=== PATIENT | male | born 1945 | race Caucasian/White ===

== ENCOUNTER 2017-01-02 16:00 | Emergency (ER) | payer OTHER ==
[~2017-01-02] VITALS: Ht 177.8 cm; Wt 102.8 kg
[~2017-01-02 16:00] MED LIST: ASPI81TA28 PO; ATOR-24 PO; CALC500C3 PO; CALC500C50 PO; GLC/500 PO; LISI-725 PO; MULT-845 PO; OMEG10007 PO; PANT40TA PO
[2017-01-02 16:03] VITALS: TEMP 36.9; Ht 177.8 cm; Wt 102.8 kg
[2017-01-02] MEDS ORDERED: XYLOCAINE 1%/SOD BICARB 20 ML VIAL INFIL ONE (16:15)
[2017-01-02] MEDS ORDERED: DIPHTHERIA/TETANUS/PERTUSSIS 0.5 ML SYR/VIAL IM. ONE (16:15)
[2017-01-02] MEDS ORDERED: LPT40 PO (16:19)
[2017-01-02] MEDS ORDERED: SILD100T PO (16:19)
[2017-01-02] MEDS ORDERED: LSN20 PO (16:19)
[2017-01-02] MEDS ORDERED: GLC500 PO (16:19)
--- NOTE | 2017-01-02 16:29 | DIAGNOSTIC IMAGING REPORT ---
LEFT FIFTH FINGER 3 VIEWS CLINICAL HISTORY: Pain status post trauma COMPARISON: None. DISCUSSION: There is a fracture involving the tuft of the distal phalanx. A portion of the medial tuft appears missing suggesting a traumatic amputation. There is an overlying soft tissue injury. IMPRESSION: Fracture involving the tuft of the distal phalanx with an associated soft tissue injury. Electronically signed by: Ruslan Lucas M.D. 01/02/2017 4:27 PM Dictated Date/Time: 01/02/2017 4:26 PM
[2017-01-02] MEDS ORDERED: CEFAZOLIN SOD 1000MG/55 ML D5W IV STA (16:39)
--- NOTE | 2017-01-02 16:50 | EMERGENCY ROOM VISIT NOTE ---
ED Visit Note First contact with patient: 16:08 Chief Complaint: Left Fifth Finger Laceration History of Present Illness: This 71-year-old male patient presents to the Emergency Department for evaluation of their finger laceration. Patient sustained the laceration while trying to adjust mower deck with a crowbar, states he smashed his finger between the crowbar and the metal blade. They report a moderate amount of bleeding initially. They deny any numbness or tingling into the distal extremity. They report no decreased range of motion of the affected digit. They have tried no medications for the pain. Patient rates current discomfort as a 1/10. Patient denies any other injuries. Patient states that he spoke with his PCP who directed him to an urgent care, however the urgent care did not feel comfortable addressing his wound and referred him to the ED. Patient's states last tetanus was 10 years ago. Medications: Reviewed in chart Allergies: Reviewed in chart PMH: Hypertension and hyperlipidemia SHx: Lives at home. He is a former smoker, denies any current tobacco use, alcohol use, recreational drug use. ROS: All pertinent positive and negative review of systems are appropriately documented in the History of Present Illness. Physical Exam: VITAL SIGNS - Vital signs and nursing notes were reviewed. GENERAL -71-year-old male who is well appearing and in no acute distress. Communicates well with provider and answers questions appropriately. SKIN - There is a 4 cm long laceration noted medial and palmar aspect of the distal fifth finger. The edges gape apart with traction. No foreign bodies appreciated. The laceration extends into the nail bed, with the nail root partially displaced. Upon further examination there are no other deep structures including vessel, tendon, or bony structures appreciated, but there is loss of subcutaneous tissue along the medial edge of the distal finger, with external skin flap intact. There is mild active bleeding noted. MUSCULOSKELETAL - Laceration as described above. + 5/5 strength appreciated of the affected digit. Full range of motion of the affected digit. NEUROLOGIC - No sensory defects of the left hand were appreciated utilizing light touch for evaluation. VASCULAR - Capillary refill was brisk. ED Course: Patient was seen and evaluated by myself. Potential diagnoses includes laceration, nail bed laceration, and open fracture. X-ray of the left fifth finger confirms a tuft fracture of the distal phalanx. IV was placed and Ancef 1 g given. Patient's tetanus was updated today. Costs and benefits of performing primary wound closure versus no repair were discussed with the patient who verbalizes understanding. Verbal consent was obtained prior to performing the procedure. 3 cc of 1% buffered lidocaine was used to perform a digital block of the left fifth digit. The wound was cleansed and prepped in the typical sterile fashion utilizing normal saline and Betadine. The wound was sterilely draped. Once proper anesthetization was established, a finger tourniquet was applied and the wound was further examined and was as is described above. The wound was copiously irrigated with normal saline and Betadine. The wound was closed using a single 5-0 Vicryl suture of the nailbed with good closure. The nail base was replaced under the cuticle with good position. The remaining laceration was then closed with simple, 5-0 nylon sutures with the wound edges being well approximated. The finger tourniquet was removed, with brisk return of capillary refill to the finger, hemostasis was achieved. Patient tolerated the procedure well. No complications were met. The wound was cleansed and dressed with a Bacitracin dressing. A metal splint was applied to the finger for comfort. Patient educated on worrisome symptoms for return visit to the Emergency Department. He was encouraged to follow closely with orthopedic/hand surgeon for follow-up. Patient discharged to home in good condition. Medication Reconciliation: I attest that I have personally reviewed the patient' s current medication list. Blood pressure screening: The patient was found to have an elevated blood pressure and was referred to their primary doctor for recheck and further treatment. The patient was discussed with Dr. Gatica, who agreed with my assessment and plan. Problem List Medical Problems: (1) Hypertension Status: Chronic Current/Historical Medications Scheduled Aspirin (Aspirin Ec), 81 MG PO DAILY Atorvastatin (Atorvastatin Calcium), 40 MG PO DAILY Calcium Carbonate (Antacid) (Tums), 1-2 TABS PO QAM Cephalexin Monohydrate (Keflex), 500 MG PO QID Fish Oil ([place]-3), 4 CAP PO BID Lisinopril (Lisinopril), 20 MG PO DAILY Metformin HCl (Metformin HCl), 500 MG PO BIDM Multiple Vitamins W/ Minerals (Centrum Silver Adult 50+), 1 TAB PO DAILY Pantoprazole (Protonix), 40 MG PO DAILY Sildenafil Citrate (Viagra), 100 MG PO PRN Allergies Coded Allergies: Atenolol (Verified Adverse Reaction, Unknown, DECREASED HR, 01/02/17) INFO FROM [facility] [place] Sulfa Antibiotics (Verified Adverse Reaction, Unknown, FEVER, 12/06/14) Vital Signs Date Time Temp Pulse Resp B/P (MAP) Pulse Ox O2 Delivery O2 Flow Rate FiO2 01/02/17 17:38 79 18 139/87 94 Room Air 01/02/17 16:03 36.9 102 17 128/82 94 Room Air Medications Administered Medications (Trade) Dose Ordered Sig/Camacho Route Start Time Stop Time Status Last Admin Dose Admin Lidocaine HCl (Buffered Lidocaine 1% Inj) 20 ml ONE ONCE INFIL 01/02/17 16:15 01/02/17 16:16 DC 01/02/17 16:15 20 ML Diphtheria/ Pertussis/Tetanus Vacc (Adacel Inj) 0.5 ml ONCE ONCE IM. 01/02/17 16:15 01/02/17 16:16 DC 01/02/17 16:25 0.5 ML Cefazolin Sodium (Ancef 1000mg/55 ml D5W) 1,000 mg NOW STAT IV 01/02/17 16:39 01/02/17 16:41 DC 01/02/17 17:11 1,000 MG Cephalexin Monohydrate (Keflex 500MG Home Pack) 1 homepack NOW ONCE PO 01/02/17 17:45 01/02/17 17:46 DC 01/02/17 17:45 1 HOMEPACK Departure Information Impression Primary Impression: Open fracture of tuft of distal phalanx of finger Additional Impression: Nailbed laceration, finger Dispostion Home / Self-Care Condition GOOD Prescriptions Cephalexin Monohydrate (Keflex) 500 Mg Cap 500 MG PO QID for 6 Days, #24 CAP Prov: Ghislaine Pena CRNP 01/02/17 Referrals Ac Vanegas III, M.D. (PCP) [facility] Patient Instructions ED Fx Finger Open, ED Laceration Hand, [facility] Additional Instructions You have received sutures on your left fifth finger. These sutures are NOT dissolvable and WILL need to be removed by a health care provider in 8-10 days. You can return to the Emergency Department or contact your Primary Care Provider to have the sutures removed. Please wear the splint for comfort until the sutures are removed. You were prescribed Keflex to be taken 4 times a day for 7 days. Take the first dose tonight. This is an antibiotic. All antibiotics have the potential to cause diarrhea. Stop this medication and contact a medical provider if you were to develop any significant adverse side effects including: wheezing, shortness of breath, passing out, vomiting, or a diffuse rash. Always take antibiotics as directed and COMPLETE the ENTIRE course regardless of the improvement of your symptoms. Proper wound care is essential for adequate wound healing and infection prevention. You can shower and clean the wound with soap and water. Do not scour over the wound, pat dry with a towel. Do not submerse the wound (i.e. bathe or dish wash) until the sutures have been removed. You can use an antibiotic ointment with a dressing over the wound for the next 3-4 days. After this time you may leave the wound dry and open to the air. If crust develops over the wound you can use a Q-tip to apply a 1:1 peroxide:water solution to clean the wound. Look for signs of infection of the wound including: increased pain, swelling, foul discharge, streaking, or fever/chills. If any of these are noticed you should return to the Emergency Department for further assessment and treatment. As with any laceration you may have received nerve damage to the surrounding tissues. This damage may or may not be permanent. You should keep the area covered with sunscreen for the first 6 months to 1 year when at risk for exposure to help minimize scarring. You can also use scar reducing creams or Vitamin E oil to help minimize scarring. For pain control, you can use the following [id number] medicines (if >12 yo): - Regular strength (325mg/tab) Tylenol (acetaminophen) 2 tabs every 4-6 hours as needed. Do not exceed 10 tablets in a 24 hour period. Avoid taking more than 3000 mg of Tylenol per day. This includes any other sources of acetaminophen you may take on a regular basis. - Regular strength (200 mg/tab) Advil (ibuprofen) 1-2 tabs every 4-6 hours as needed. Do not exceed a dose of 2400 mg per day. You should follow up with orthopedics, hand specialist, next week for further management of your finger injury. Call to make an appointment this week. Return to the emergency department if your symptoms worsen despite treatment course outlined above. Problem Qualifiers Additional Impression: Nailbed laceration, finger Encounter type: initial encounter Qualified Codes: S61.319A - Laceration without foreign body of unspecified finger with damage to nail, initial encounter
[2017-01-02] MEDS ORDERED: CEPH500C PO (17:40)
[2017-01-02] MEDS ORDERED: CEPHALEXIN 500MG HOME PACK 1 EA BTL PO ONE (17:45)
[2017-01-02 18:22] VITALS: BP 136/82; PULSE 81; O2SAT 95
--- NOTE | 2017-01-02 21:39 | EMERGENCY ROOM VISIT NOTE ---
ED Visit Note First contact with patient: 16:08 I have personally evaluated this patient examined her and reviewed the pertinent labs and data. I have discussed the case with Kristin Jackson, the nurse practitioner and agree with the plan. Please refer to the PA note. This patient comes in after injuring his left fifth finger. He has a tuft fracture on x-ray. She has repaired the laceration. We have updated on his tetanus and will put him in a splint and follow-up with orthopedics as well as start him on antibiotics. He has no other complaints is resting comfortably on my exam. He'll be discharged.
== END 2017-01-02 18:23 | disposition home or self-care (01) ==
LOC: C.EDB 16:01 → C.EDD 18:23
DX: S62.637B Displaced fracture of distal phalanx of left little finger, initial encounter for open fracture (principal); S61.317A Laceration without foreign body of left little finger with damage to nail, initial encounter; W23.1XXA Caught, crushed, jammed, or pinched between stationary objects, initial encounter; Y93.89 Activity, other specified; I10 Essential (primary) hypertension; E78.5 Hyperlipidemia, unspecified; Z87.891 Personal history of nicotine dependence; Z79.82 Long term (current) use of aspirin; Z79.899 Other long term (current) drug therapy; Z23 Encounter for immunization